=== PATIENT | female | born 1935 | race Two or more races ===

== ENCOUNTER 2024-10-17 10:38 | Emergency (ER) | payer MEDICARE, MEDICAID, SELFPAY ==
[2024-10-17] VITALS (10 sets, daily range): BP systolic 125–167; BP diastolic 73–94; PULSE 53–61; RESP 14–25; TEMP 36.6–37.2; O2SAT 90–100; BMI 29.2
--- NOTE | 2024-10-17 10:56 | PD.EDSOB ---
ED SOB =RME/HPI General Chief Complaint: Shortness of Breath/Dyspnea Stated Complaint: BRADYCARDIA Time Seen by Provider: 10/17/24 11:12 Arrival date/time: 10/17/24 10:38 Limitations: no limitations RME / HPI RME / HPI Narrative: 89 year old female with history of dementia and hypertension presents to the ED [facility]IB[facility] from [facility] for evaluation of bradycardia and hypoxia today. Per medics, [place] staff reported patient was saturating low 90s on room air and placed on 2L nasal cannula. At baseline patient does not use oxygen. Also noted patient to be bradycardic in the low 50s. While in the ED patient has no complaints and states she doesn't know why she was brought in. Per medics, prehospital BP 122/70, HR 55, RR 18, O2 99% on 6L nasal cannula, and FSBS 109. Daughter reports the patient was recently restarted on Hydroxyzine. Stated when patient took it in the past, she had felt sedated and believe that is why she is acting different today. Related Data Previous Rx's ?Medication ?Instructions ?Recorded cefuroxime axetil 500 mg tablet 500 mg PO BID #14 tabs 12/31/22 megestrol 20 mg tablet 20 mg PO BID #30 tabs 12/31/22 meloxicam 15 mg tablet 15 mg PO QDAY #30 tabs 12/31/22 levofloxacin 500 mg tablet 500 mg PO Q24H 10 days #10 tabs 10/17/24 Allergies Allergy/AdvReac Type Severity Reaction Status Date / Time No Known Allergies Allergy Verified 12/31/22 11:27 Review of Systems Review of Systems Systems Reviewed: All systems reviewed, normal except as documented Past Medical History Past Medical History CARDIAC: Negative Congestive Heart Failure RESPIRATORY: Negative Chronic Obstructive Pulmonary Disease (COPD) GENITOURINARY: Negative Renal Disease ENDOCRINE: Negative Diabetes Mellitus Type 1 or Diabetes Mellitus Type 2 Social History SMOKING STATUS: Never smoker ED Exam General Limitations: Present no limitations General appearance: Present alert and in no apparent distress Head Head exam: Present atraumatic, normocephalic and normal inspection Eye Eye exam: Present normal appearance, PERRL and EOMI ENT ENT exam: Present normal exam, normal oropharynx and mucous membranes moist Neck Neck exam: Present normal inspection, full ROM and trachea midline Chest Chest inspection: Present normal inspection and symmetric chest wall rise Respiratory Respiratory exam: Present normal lung sounds bilaterally Cardiovascular Cardiovascular exam: Present regular rate, normal rhythm and normal heart sounds Abdominal Exam Abdominal exam: Present soft and normal bowel sounds Extremities Exam Extremities exam: Present normal inspection and full ROM Back Exam Back exam: Present normal inspection and full ROM Neurological Exam Neurological exam: Present alert, oriented X3 and CN II-XII intact Psychiatric Psychiatric exam: Present normal affect and normal mood Skin Skin exam: Present warm, dry, intact and normal color Course Quality Measures none Orders Category Date Time Status Snack Bar Cook NOW Care 10/17/24 11:14 Active Continuous Pulse Oximetry NOW Care 10/17/24 11:14 Completed EKG (ED ONLY) *Do not use* NOW Care 10/17/24 11:14 Completed Insert IV NOW Care 10/17/24 11:14 Active EKG (ED Only) Stat Exams 10/17/24 11:14 Draft XR chest 1V portable Stat Exams 10/17/24 11:14 Completed Blood Culture (Lab) Stat Lab 10/17/24 13:05 Received CBC Stat Lab 10/17/24 11:22 Completed Comprehensive Metabolic Panel Stat Lab 10/17/24 11:22 Completed Lactic Acid [Lactate (Lactic Acid)] Stat Lab 10/17/24 13:10 Completed Prothrombin Time with INR Stat Lab 10/17/24 11:22 Completed Troponin I Stat Lab 10/17/24 11:22 Completed ALBUTEROL RT 3ml [Proventil Rt 3ml] Med 10/17/24 12:48 Discontinued 2.5 mg INH X1 ONE Levofloxacin/D5w 500 mg Ivpb [Levaquin Ivpb] Med 10/17/24 12:48 Discontinued 500 mg in 100 ml IV X1 Sodium Chloride 0.9% 1000 ml [Ns] 1,000 ml Med 10/17/24 11:14 Active IV 100 mls/hr Oxygen Delivery NOW RT 10/17/24 11:14 Active Vital Signs Vital signs: Vital Signs Temperature 98.0 F 10/17/24 10:41 Pulse Rate 59 L 10/17/24 10:41 Respiratory Rate 18 10/17/24 10:41 Blood Pressure 125/89 H 10/17/24 10:41 Pulse Oximetry (%) 94 L 10/17/24 10:41 Oxygen Delivery Method Room Air 10/17/24 10:41 Pulse ox is 94% on room air which is adequate. Shortness of Breath / Dyspnea MDM Narrative MDM Narrative:: I, Meenu Ramirez, am scribing for and in the presence of Dr. Rogers. Patient remains clinically stable throughout the emergency department visit. We reviewed all the results, analysis, and treatment plans. Patient is amenable to discharge. Strict return precautions were outlined. Patient was discharged in stable condition. Patient data External records reviewed:: [facility] previous records (I reviewed ED Visit on 12/31/2022 ), EMS form and [facility] records (I reviewed pmhx and medication list from SNF ) Clinical information provided by:: patient and EMS Social determinants that could affect healthcare access:: housing ([place] resident ) Patient has the following chronic illnesses:: dementia and hypertension How is presenting disease/condition affected by chronic disease/condition?: uneffected by Evaluation data The following diagnostics were reviewed and interpreted by me:: lab results, radiology exam(s) and EKG tracing(s) (EKG 10/17/2024 @ 11:44 AM. Sinus bradycardia with occasional PVC's, rate 57, no STEMI. MT 194ms, QRS 95ms, QT/QTc 453/447ms. ) Lab and/or radiology exams considered but not ordered:: None Interpretation Summary: Ordering Physician: Harman Rogers MD Date of Service: 10/17/24 Procedure(s): XR chest 1V portable Accession Number(s): [id number] cc: Harman Rogers MD; Lokesh Ruiz MD~ Examination: AP chest single view Technique one AP portable upright chest single view Date and time: October 17, 2024 11:51 AM Comparison February 17, 2023 INDICATIONS: Coughing beginning 3 days ago. FINDINGS: Mild heart failure Mild enlargement cardiac contour Prominent vascular congestion Superimposed pneumonia in the perihilar right basilar region IMPRESSION: Mild heart failure Significant superimposed right lung pneumonia Dictated By: Lokesh Ruiz MD Signed By: <Electronically signed by Lokesh Ruiz MD in OV> 10/17/24 1205 Medications / Prescriptions Medications or Prescriptions considered but not ordered:: None Medication administrations:: Medication Administration History Sodium Chloride (Ns) 1,000 mls @ 100 mls/hr IV .Q10H ONE Stop: 10/17/24 21:13 Last Admin: 10/17/24 11:32 Dose: 100 mls/hr Documented By: MEGHAN Discontinued Medications Albuterol (Albuterol Rt 2.5 Mg/3 Ml Nebu) 2.5 mg INH X1 ONE Stop: 10/17/24 12:49 Last Admin: 10/17/24 14:12 Dose: 2.5 mg Documented By: AIMEE Levofloxacin/Dextrose (Levaquin Ivpb) 500 mg in 100 mls @ 100 mls/hr IV X1 ONE Stop: 10/17/24 13:47 Last Infusion: 10/17/24 15:59 Dose: Infused Documented By: Admin: 10/17/24 14:33 Dose: 100 mls/hr Documented By: KAISER See above Consultations Consultation(s) initiated? (list below): No Diagnosis Shortness of Breath Differential Diagnosis: acute exacerbation of chronic obstructive airways disease, congestive heart failure, community acquired pneumonia and asthma with exacerbation Most likely diagnosis given after review of the tests above:: Community acquired pneumonia Admission Indicated Admission indicated?: not indicated Admission Request Was there a request for admission?: No Disposition Plan Disposition Plan: Discharge Discharge Attestation Discharge Attestation: The patient and all family members were given an opportunity to ask questions and understood the discharge instructions. Discharge instructions specifically effects, indications for sooner follow up or return to the emergency department, and the expected course of current diagnosis. Patient condition: Stable Discharge Plan Plan Patient Disposition: HOME (Self Care) Prescriptions/Referrals Prescriptions/Med Rec: New levofloxacin 500 mg tablet 500 mg PO Q24H 10 Days Qty: 10 0RF No Action cefuroxime axetil 500 mg tablet 500 mg PO BID Qty: 14 0RF meloxicam 15 mg tablet 15 mg PO QDAY Qty: 30 0RF megestrol 20 mg tablet 20 mg PO BID Qty: 30 0RF Referrals: Minor([facility])Анна MD [Primary Care Provider] - In 1 week Outpatient Orders: DME: Oxygen (Routine) Location: None Selected Ordered By: Harman Rogers Problem List Clinical Impression: Community acquired pneumonia Patient/Caregiver Discharge Instructions Additional Instructions: Please start oxygen at 1-1/2 L nasal cannula as needed for shortness of breath. Please keep patient's O2 saturation greater than 90%. Print Language: Welsh Stand Alone Forms: [facility]ina Award Info., Patient Portal Info Letter
--- NOTE | 2024-10-17 11:14 | XR_ITS ---
Examination: AP chest single view Technique one AP portable upright chest single view Date and time: October 17, 2024 11:51 AM Comparison February 17, 2023 INDICATIONS: Coughing beginning 3 days ago. FINDINGS: Mild heart failure Mild enlargement cardiac contour Prominent vascular congestion Superimposed pneumonia in the perihilar right basilar region IMPRESSION: Mild heart failure Significant superimposed right lung pneumonia
--- NOTE | 2024-10-17 11:14 | EKG_ITS ---
[facility] Test Date: 2024-10-17 Pat Name: YOUNG DENISE Department: Room: - Gender: Female Customer Solutions Architect: : 1935 Requested By: Harman Quiroz Order Number: [id number] Reading MD: Harman Quiroz Measurements Intervals [place] Rate: 57 P: 73 RI: 194 QRS: 60 QRSD: 95 T: 15 QT: 453 QTc: 442 Interpretive Statements SINUS BRADYCARDIA WITH OCCASIONAL SUPRAVENTRICULAR PREMATURE COMPLEXES NONSPECIFIC T-WAVE ABNORMALITY No previous ECG available for comparison /[id number]/S0/[id number].pdf
[2024-10-17] MEDS: SODIUM CHLORIDE 0.9% 1000 ML 1,000 ML 100 ML IV (11:32)
[2024-10-17 11:36] LABS: Basophils % (Auto) 1 % (0-2.5); Eosinophils # (Auto) 0.1 Thou/mm3 (0.0-0.5); Eosinophils % (Auto) 1 % (0-10); Hematocrit 36.1 % (36.0-46.0); Hemoglobin 12.2 g/dL (12.0-16.0); Immature Granulocytes % (Auto) 0 % (0-0); Immature Granulocytes Auto 0.03 Thou/mm3 (0.00-0.00); Lymphocytes # (Auto) 1.2 Thou/mm3 (1.0-4.8); Lymphocytes % (Auto) 17 % (10-50); Mean Corpuscular HGB Conc 33.8 g/dl (31.0-37.0); Mean Corpuscular Hemoglobin 30.9 pg (25.0-35.0); Mean Corpuscular Volume 91 fL (80-100); Monocytes # (Auto) 0.9 Thou/mm3 (0.0-0.8); Monocytes % (Auto) 12 % (0-12); Neutrophils # (Auto) 4.9 Thou/mm3 (1.8-7.7); Neutrophils % (Auto) 69 % (37-80); Nucleated Red Blood Cell % 0 /100 WBC (0); Platelet Count 352 Thou/mm3 (140-440); RDW Standard Deviation 47.8 fL (36.4-46.3); Red Blood Count 3.95 Miln/mm3 (4.00-5.20); White Blood Count 7.1 Thou/mm3 (3.6-11.0)
[2024-10-17 11:49] LABS: INR 1.1 (0.9-1.3); Prothrombin Time 11.9 Seconds (9.0-12.2)
[2024-10-17 11:53] LABS: Alanine Aminotransferase 32 U/L (10-49); Albumin, Serum 4.2 gm/dL (3.4-4.8); Albumin/Globulin Ratio 2.3 (1.2-2.2); Alkaline Phosphatase 68 U/L (46-116); Anion Gap 10 (7-16); BUN/Creatinine Ratio 20 Ratio (12-20); Bilirubin,Total 0.5 mg/dL (0.3-1.2); Blood Urea Nitrogen 14 mg/dL (9-23); Carbon Dioxide 29.1 mMol/L (20.0-31.0); Chloride 105 mMol/L (98-107); Creatinine (Component) 0.7 mg/dL (0.6-1.3); Estimated Creatinine Clearance 52.8 mL/min (>60); Globulin 1.8 gm/dL (2.3-3.5); Glucose 99 mg/dL (74-106); Osmolality,Calculated 287 (275-295); Potassium 4.2 mMol/L (3.4-5.1); Sodium 144 mMol/L (136-145); Troponin I < 0.020 ng/mL (0.0-0.045); eGFR > 60 See Note
[2024-10-17 13:21] LABS: Lactate (Lactic Acid) 0.9 mMol/L (0.4-2.0)
[2024-10-17] MEDS: ALBUTEROL RT 2.5 MG/3 ML NEBU INH (14:12)
[2024-10-17] MEDS: LEVOFLOXACIN/D5W 500 MG IVPB 500 MG/100 ML BAG 100 MG IV (14:33)
--- NOTE | 2024-10-17 16:57 | PC.CC ---
Addendum entered by Chelsea Loomis 10/17/24 19:07: ASW contacted [facility] regarding the status of the AUTH. [facility] reported they provided the AUTH to [facility]. ASW contacted [facility] and provided a p/u eta of 2014 Addendum entered by Chelsea Loomis 10/17/24 18:54: ASW contacted [facility] [phone] and they still have not received the transport request from [facility] [phone], but [facility] did place the transport on their que. Once [facility] calls to provide the auth, [facility] will call with a p/u ETA. Addendum entered by Chelsea Loomis 10/17/24 17:46: [employer] [employer] CONTACTED [facility] AND THEY WERE ABLE TO PROVIDE THE CORRECT INSURANCE INFORMATION, PT HAS [employer] BLUE CROSS AND MEDICARE. REGISTRATION HAD AN INSURANCE THAT WAS OUTDATED AND NOT CORRECT, WHICH CAUSED A DELAY IN TRANSPORTATION ARRANGEMENTS. CORRECTED INSURANCE WAS PROVIDED TO REGISTRATION. Addendum entered by Chelsea Loomis 10/17/24 17:44: ASW ARRANGED TRANSPORTATION VIA [facility] [phone]; TRIP RESERVATION #[id number]. ASW UPLOADED TRANSPORTATION FORM TO [facility]. [facility] OR [facility] [phone] WILL CALL WITH A P/U ETA. Original Note: ASW contacted the pts son, next of kin Johnny Wright [phone] and explained the cost to transport the pt to [facility]. Pts son decided to p/u pt and take her to [facility] to avoid the EMS transport, per pts son. Pts son will arrive in 30 min to p/u the pt.
== END 2024-10-17 19:50 | disposition home or self-care (01) ==
PROVIDERS: Emergency Provider Family Medicine; PCP Hospitalist
DX: J18.9 Pneumonia, unspecified organism (principal); I11.0 Hypertensive heart disease with heart failure; I50.9 Heart failure, unspecified; I49.1 Atrial premature depolarization
CPT/HCPCS: 36415; 71045; 80053; 83605; 84484; 85025; 85610; 87040; 93005; 94640; 96361; 96365; 99284; J1956; J7030